=== PATIENT | female | born 1965 | race Caucasian/White ===

== ENCOUNTER 2025-05-19 23:23 | Emergency (ER) | payer OTHER ==
[~2025-05-19] VITALS: Ht 170.2 cm; Wt 119.0 kg
[2025-05-19 23:40] LABS: BASOPHILS 0.7 % (0.1-1.2); EOSINOPHILS 3.9 % (0.7-5.8); LYMPHOCYTES 29.2 % (19.3-51.7); MCH 28.1 PG (25.6-32.2); MCHC 31.6 g/dL (32.2-35.5); MCV 88.8 fL (79.4-94.8); MONOCYTES 8.4 % (4.7-12.5); NEUTROPHILS 57.5 % (34.0-71.1); RBC 4.20 M/uL (3.93-5.22)
[2025-05-19] MEDS ORDERED: OXYCODONE HCL5 M1 PO (23:40)
[2025-05-19] MEDS ORDERED: LEVOTHYROXINE100 MC2 PO (23:40)
[2025-05-19] MEDS ORDERED: LISINOPRIL-HCT1 EAC1 PO (23:40)
[2025-05-19 23:56] LABS: ALT (SGPT) 28.0 U/L (14-59); AST (SGOT) 18.0 U/L (15-37); GLOMERULAR FILTRATION RATE,EST 79.0 mL/min (>60); PROTEIN, TOTAL 7.7 g/dL (6.4-8.2); UREA NITROGEN 16.0 mg/dL (7-18)
[2025-05-20 00:38] VITALS: BP 138/78
--- NOTE | 2025-05-21 07:40 | EKG ---
[facility] [address] [facility] [place], [place] [address] Signed Normal sinus rhythm Normal ECG No previous ECGs available Confirmed by Ricci Rodriguez DO ([id number]) on 05/21/2025 7:40:03 AM Electronically Signed By: RICCI RODRIGUEZ DO 05/21/25 0740 PATIENT NAME: RANDEE PRATER Electrocardiogram DATE OF : 61 PHYSICIAN: RICCI RODRIGUEZ DO REPORT #: [id number] REPORT IS CONFIDENTIAL AND NOT TO BE RELEASED WITHOUT AUTHORIZATION
== END 2025-05-20 00:38 | disposition left against medical advice (07) ==
LOC: ED 23:23
PROVIDERS: Internal Medicine
DX: R10.13 Epigastric pain (principal); Z53.29 Procedure and treatment not carried out because of patient's decision for other reasons; I10 Essential (primary) hypertension; Z79.899 Other long term (current) drug therapy; Z88.8 Allergy status to other drugs, medicaments and biological substances
CPT/HCPCS: 80053; 83690; 83735; 85025; 93005; 93010; 96374; 99284-25; J2405